=== PATIENT | female | born 1980 | race American Indian/Alaskan Native ===

== ENCOUNTER 2018-03-17 10:30 | Emergency (ER) | payer OTHER ==
[2018-03-17 10:37] VITALS: BP 123/78
[2018-03-17] MEDS ORDERED: NORCO 5/325 PO ONE (11:14)
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
== END 2018-03-17 15:50 | disposition home or self-care (01) ==
LOC: ED 10:30
DX: S09.8XXA Other specified injuries of head, initial encounter (principal); S16.1XXA Strain of muscle, fascia and tendon at neck level, initial encounter; M25.531 Pain in right wrist; M25.512 Pain in left shoulder; Z88.8 Allergy status to other drugs, medicaments and biological substances; Z88.2 Allergy status to sulfonamides; V89.2XXA Person injured in unspecified motor-vehicle accident, traffic, initial encounter; Y93.89 Activity, other specified; Y99.8 Other external cause status; Y92.410 Unspecified street and highway as the place of occurrence of the external cause
CPT/HCPCS: 36415; 70450; 72125; 84703